=== PATIENT | male | born 2000 | race Hispanic/Latino ===

== ENCOUNTER 2021-02-08 10:34 | Emergency (ER) | payer OTHER ==
[~2021-02-08] VITALS: Ht 167.6 cm; Wt 73.2 kg
--- NOTE | 2021-02-08 11:40 | REP ---
INDICATION: PAIN COMPARISON: None. TECHNIQUE: Valera scale and color Doppler evaluation using linear and curved array transducer with color Doppler evaluation. FINDINGS: The testicles and epididymi are relatively normal in contour, size, echogenicity, vascularity and overall appearance. Incidental 4 mm left epididymal head cyst. There is no evidence for intratesticular mass lesion, infectious/inflammatory process, or torsion. No obvious hydroceles or varicoceles are identified. Small amount of bilateral scrotal fluid is nonspecific. Right testicle measures 5.1 x 2.6 x 3.1 cm. Left testicle measures 4.8 x 2.6 x 3.5 cm. IMPRESSION: Essentially normal scrotal ultrasound. <Electronically signed by Bishop Bean > 02/08/21 [id number]
[2021-02-08 11:46] LABS: BASO % 0.2 % (0.0-1.0); EOS % 0.7 % (0.0-3.0); HEMOGLOBIN 16.4 g/dl (13.5-17.5); LYMPH # 1.5 10^3/uL (1.5-5.0); MEAN CORPUSCULAR HEMOGLOBIN 29.4 pg (27.0-33.0); MEAN CORPUSCULAR HGB CONC 34.9 g/dl (32.0-36.5); MEAN CORPUSCULAR VOLUME 84.2 fl (80.0-96.0); MONO # 0.4 10^3/uL (0.0-0.8); MONO % 8.1 % (2.0-8.0); NEUTROPHILS # 2.4 10^3/uL (1.5-8.5); PLATELET COUNT, AUTOMATED 143 10^3/uL (150-450); RED BLOOD COUNT 5.58 10^6/uL (4.30-6.10); WHITE BLOOD COUNT 4.3 10^3/uL (4.0-10.0)
[2021-02-08 12:13] LABS: ALBUMIN 4.7 GM/DL (3.2-5.2); BILIRUBIN,DIRECT 0.3 MG/DL (0.0-0.2); TOTAL PROTEIN 7.9 GM/DL (6.4-8.2)
[2021-02-08 13:25] VITALS: BP 109/57
== END 2021-02-08 13:28 | disposition home or self-care (01) ==
LOC: M ED 10:34
DX: N50.819 Testicular pain, unspecified (principal); Z87.442 Personal history of urinary calculi